=== PATIENT | female | born 1990 | race Caucasian/White ===

== ENCOUNTER → 2016-08-07 | Outpatient (CLI) | payer BC | LOC: MW.CHOBGYN 14:03 | PROVIDERS: ATTEND Obstetrics & Gynecology | DX: Z32.00 Encounter for pregnancy test, result unknown (principal) | CPT/HCPCS: 80305; 81003; 81025 ==

== ENCOUNTER → 2016-08-08 | Outpatient (CLI) | payer BC | END | disposition home or self-care (01) | LOC: MW.CHOBGYN 10:25 | PROVIDERS: ATTEND Obstetrics & Gynecology | DX: Z34.90 Encounter for supervision of normal pregnancy, unspecified, unspecified trimester (principal) | CPT/HCPCS: 87070; 87491; 87591 ==

== ENCOUNTER 2017-03-09 22:55 | Inpatient (IN) | payer BC ==
[2017-03-10] MEDS ORDERED: Ampicillin 2 GM in Sodium Chloride 0.9% 100 ML IV STA (01:00)
[2017-03-10] MEDS ORDERED: Carboprost Tromethamine 250 MCG/1 ML Amp IM PRN (01:07)
[2017-03-10] MEDS ORDERED: Lidocaine 1% 50 ML MDV INJECT PRN (01:07)
[2017-03-10] MEDS ORDERED: Butorphanol 1 MG/ML SDV IVPUSH PRN (01:07)
[2017-03-10] MEDS ORDERED: Water For Irrigation,Sterile 1,000 ML Container IRR PRN (01:07)
[2017-03-10] MEDS ORDERED: Sodium Chloride 0.9% 10 ML Syringe FLUSH PRN (01:07)
[2017-03-10] MEDS ORDERED: Sodium Chloride 0.9% 2.5 ML Syringe FLUSH PRN (01:07)
[2017-03-10] MEDS ORDERED: Methylergonovine 0.2 MG/1 ML Amp IM PRN ×2 (01:07→02:31)
[2017-03-10] MEDS ORDERED: Misoprostol 200 MCG Tab PO PRN (01:07)
[2017-03-10] MEDS ORDERED: Nalbuphine 10 MG/1 ML Vial IVPUSH PRN (01:07)
[2017-03-10] MEDS ORDERED: Sodium Chloride 0.9% 100 ML ONE (01:10)
[2017-03-10] MEDS ORDERED: Ampicillin 2 GM AdvVial IV ONE (01:10)
[2017-03-10] MEDS ORDERED: Oxytocin/0.9 % Sodium Chloride 30 UNIT/500 ML BAG IV SCH (01:15)
[2017-03-10] MEDS ORDERED: Lactated Ringers 1,000 ML IV SCH (01:15)
[2017-03-10] MEDS ORDERED: Diphtheria,Pertussis(Acell),Tetanus Vaccine 0.5 ML Syringe IM ONE (01:32)
--- NOTE | 2017-03-10 02:26 | PCM.LDHP ---
<Jt Kramer - Last Filed: 03/10/17 02:20> L&D History of Present Illness - General Date of Service: 03/10/17 Admit Problem/Dx: Patient Status Order with Admit Dx/Problem 03/09/17 23:32 Patient Status [ADT] Routine 03/10/17 01:07 Patient Status [ADT] Routine Admission Diagnosis/Problem Admission Diagnosis/Problem - planned Source of Information: Patient History Limitations: Reports: No Limitations - History of Present Illness Introduction:: Patient states that she began to feel contraction yesterday, 03/09/17, at 2am. She states shortly after that she passed her mucus plug that was "tinge red" in color. The presented to labor and delivery due to increased frequency and intensity of contraction. Timing/Duration: Reports: hour(s): (24hr), gradual onset Location, : Reports: Uterus Quality: Reports: Pressure Severity: Moderate Pain Score: 7 Associated Symptoms: Reports: vaginal discharge (clear / light pink) - Related Data Allergies/Adverse Reactions: Allergies Allergy/AdvReac Type Severity Reaction Status Date / Time No Known Allergies Allergy Verified 03/10/17 01:07 Past Medical History HEENT History: Reports: Impaired Vision Cardiovascular History: Reports: None Respiratory History: Reports: None Gastrointestinal History: Reports: None Genitourinary History: Reports: None. Denies: STD, UTI, Recurrent AUDIT LEAD History: Reports: : 2 Para: 1 LMP (Approximate): (May 27, 2016) Musculoskeletal History: Reports: None Neurological History: Reports: None Psychiatric History: Reports: None - Infectious Disease History Infectious Disease History: Denies: Hepatitis A, Hepatitis B, Hepatitis C, HIV- Human Immunodeficiency Virus - Past Surgical History Head Surgeries/Procedures: Reports: None HEENT Surgical History: Reports: None Cardiovascular Surgical History: Reports: None Respiratory Surgical History: Reports: None GI Surgical History: Reports: None Female Surgical History: Reports: None Endocrine Surgical History: Reports: None Neurological Surgical History: Reports: None Musculoskeletal Surgical History: Reports: None Oncologic Surgical History: Reports: None Dermatological Surgical History: Reports: None Social & Family History - Tobacco Use Smoking Status *Q: Never Smoker - Alcohol Use Alcohol Use History: No - Recreational Drug Use Recreational Drug Use: No - Sexual History Sexual History: Reports: Single Partner - Living Situation & Occupation Living situation: Reports: Occupation: Employed ([employer]) Social History Comment: Patient lives at home in [place] with her , works for [employer], and her daughter who is 6yo. No smoke exposure. H&P Review of Systems - Review of Systems: Review Of Systems: See Below General: Denies: Fever, Chills, Malaise HEENT: Reports: Glasses. Denies: Dysphasia, Headaches, Hearing Changes, Sore Throat, Visual Changes Pulmonary: Denies: Shortness of Breath, Pleuritic Chest Pain, Cough Cardiovascular: Reports: Edema (trace). Denies: Chest Pain, Palpitations, Dyspnea on Exertion Gastrointestinal: Reports: Nausea, Vomiting. Denies: Constipation, Diarrhea, Decreased Appetite Genitourinary: Denies: Dysuria, Frequency, Burning, Pain Musculoskeletal: Denies: Neck Pain, Joint Swelling, Muscle Pain Skin: Denies: Cyanosis Psychiatric: Denies: Confusion, Depression, Mood Lability Neurological: Denies: Confusion, Dizziness, Headache L&D Exam - Exam Exam: See Below - Vital Signs Vital Signs: Temp 98.1 BP 123/77 HR 68 RR 16 Weight: 74.843 kg - OB Specific Contraction Frequency (min): 2-5mins Contraction Intensity: Mild to Moderate Movement: Active Heart Tones: Present Heart Tones per Min: 130 Heart Rate (FHR) Variability: Moderate (6-25 bmp) Presentation: Left Occiput Anterior (EULA) - Exam General: Alert, Oriented HEENT: Mucosa Moist & [place] Neck: Trachea Midline Lungs: Clear to Auscultation, Normal Respiratory Effort Cardiovascular: Regular Rate, Regular Rhythm GI/Abdominal Exam: Normal Bowel Sounds Genitourinary: Normal external exam Back Exam: Full Range of Motion Extremities: Normal Inspection, Normal Range of Motion, Non-Tender, Pedal Edema (trace) Skin: Warm, Dry, Intact Neurological: Normal Speech. No: Focal Deficit Psychiatric: Alert, Normal Affect, Normal Mood - Patient Data Lab Results Last 24 hrs: Laboratory Results - last 24 hr 03/09/17 03/09/17 03/10/17 Range/Units 23:40 23:40 01:19 WBC 16.03 H (4.0-11.0) K/uL RBC 4.17 L (4.30-5.90) M/uL Hgb 11.5 L (12.0-16.0) g/dL Hct 35.1 L (36.0-46.0) % MCV 84.2 (80.0-98.0) fL MCH 27.6 (27.0-32.0) pg MCHC 32.8 (31.0-37.0) g/dL RDW Std Deviation 39.3 (28.0-62.0) fl RDW Coeff of Allie 13 (11.0-15.0) % Plt Count 276 (150-400) K/uL MPV 11.50 (7.40-12.00) fL Urine Color YELLOW Urine Appearance CLEAR Urine pH 7.0 (5.0-8.0) Ur Specific [place] 1.025 (1.001-1.035) Urine Protein NEGATIVE (NEGATIVE) mg/dL Urine Glucose (UA) NEGATIVE (NEGATIVE) mg/dL Urine Ketones NEGATIVE (NEGATIVE) mg/dL Urine Occult Blood TRACE-INTACT (NEGATIVE) Urine Nitrite NEGATIVE (NEGATIVE) Urine Bilirubin NEGATIVE (NEGATIVE) Urine Urobilinogen 0.2 (<2.0) EU/dL Ur Leukocyte Esterase NEGATIVE (NEGATIVE) Urine Opiates Screen NEGATIVE (NEGATIVE) Ur Oxycodone Screen NEGATIVE (NEGATIVE) Urine Methadone Screen NEGATIVE (NEGATIVE) Ur Barbiturates Screen NEGATIVE (NEGATIVE) Ur Phencyclidine Scrn NEGATIVE (NEGATIVE) Ur Amphetamine Screen NEGATIVE (NEGATIVE) U Methamphetamines Scrn NEGATIVE (NEGATIVE) U Benzodiazepines Scrn NEGATIVE (NEGATIVE) U Cocaine Metab Screen NEGATIVE (NEGATIVE) U Marijuana (THC) Screen NEGATIVE (NEGATIVE) Blood Type Antibody Screen 03/10/17 Range/Units 01:19 WBC (4.0-11.0) K/uL RBC (4.30-5.90) M/uL Hgb (12.0-16.0) g/dL Hct (36.0-46.0) % MCV (80.0-98.0) fL MCH (27.0-32.0) pg MCHC (31.0-37.0) g/dL RDW Std Deviation (28.0-62.0) fl RDW Coeff of Allie (11.0-15.0) % Plt Count (150-400) K/uL MPV (7.40-12.00) fL Urine Color Urine Appearance Urine pH (5.0-8.0) Ur Specific [place] (1.001-1.035) Urine Protein (NEGATIVE) mg/dL Urine Glucose (UA) (NEGATIVE) mg/dL Urine Ketones (NEGATIVE) mg/dL Urine Occult Blood (NEGATIVE) Urine Nitrite (NEGATIVE) Urine Bilirubin (NEGATIVE) Urine Urobilinogen (<2.0) EU/dL Ur Leukocyte Esterase (NEGATIVE) Urine Opiates Screen (NEGATIVE) Ur Oxycodone Screen (NEGATIVE) Urine Methadone Screen (NEGATIVE) Ur Barbiturates Screen (NEGATIVE) Ur Phencyclidine Scrn (NEGATIVE) Ur Amphetamine Screen (NEGATIVE) U Methamphetamines Scrn (NEGATIVE) U Benzodiazepines Scrn (NEGATIVE) U Cocaine Metab Screen (NEGATIVE) U Marijuana (THC) Screen (NEGATIVE) Blood Type B POSITIVE Antibody Screen NEGATIVE Result Diagrams: 03/10/17 01:19 - Problem List (1) SNOMED Code(s): 06945185 ICD Code: Z34.90 - ENCNTR FOR SUPRVSN OF NORMAL , UNSP, UNSP TRIMESTER Status: Acute Current Visit: Yes QualifierTitle: Weeks of gestation: 41 weeks Qualified Code(s): Z3A.41 - 41 weeks gestation of (2) care insufficient SNOMED Code(s): 0796289281800 ICD Code: O09.30 - SUPRVSN OF PREG W INSUFFICIENT ANTENAT CARE, UNSP TRIMESTER Status: Acute Current Visit: Yes QualifierTitle: Trimester: unspecified trimester Qualified Code(s): O09.30 - Supervision of with insufficient care, unspecified trimester Problem List Initiated/Reviewed/Updated: Yes Orders Last 24hrs: Active Orders 24 hr Category Date Time Status Patient Status [ADT] Routine ADT 03/09/17 23:32 Active Patient Status [ADT] Routine ADT 03/10/17 01:07 Active Heart Tones [RC] CONTINUOUS Care 03/10/17 01:07 Active Non Stress Test [RC] PER UNIT ROUTINE Care 03/09/17 23:32 Active Non Stress Test [RC] PER UNIT ROUTINE Care 03/10/17 01:07 Active May Shower [RC] ASDIRECTED Care 03/10/17 01:07 Active Notify Provider [RC] PRN Care 03/10/17 01:07 Active Up ad Martha [RC] ASDIRECTED Care 03/09/17 23:32 Active Up ad Martha [RC] ASDIRECTED Care 03/10/17 01:07 Active Vaccines to be Administered [RC] PER UNIT ROUTINE Care 03/10/17 01:32 Active Vaginal Exam [RC] Click to Edit Care 03/09/17 23:32 Active Vaginal Exam [RC] PRN Care 03/10/17 01:07 Active Vital Signs [RC] PER UNIT ROUTINE Care 03/09/17 23:32 Active Vital Signs [RC] PER UNIT ROUTINE Care 03/10/17 01:07 Active CULTURE GROUP B STREP [RM] Routine Lab 03/10/17 01:45 Received Ampicillin 1 gm Med 03/10/17 05:00 Active Sodium Chloride 0.9% [Normal Saline] 50 ml IV Q4H Butorphanol [Stadol] Med 03/10/17 01:07 Active 1 mg IVPUSH Q1H PRN Carboprost Tromethamine [Hemabate DS] Med 03/10/17 01:07 Active 250 mcg IM ASDIRECTED PRN Lactated Ringers [Ringers, Lactated] 1,000 ml Med 03/10/17 01:15 Active IV ASDIRECTED Lidocaine 1% [Xylocaine 1%] Med 03/10/17 01:07 Active 50 ml INJECT .ONCE PRN Methylergonovine [Methergine] Med 03/10/17 01:07 Active 0.2 mg IM ASDIRECTED PRN Misoprostol [Cytotec] Med 03/10/17 01:07 Active 200 mcg PO .ONCE PRN Nalbuphine [Nubain] Med 03/10/17 01:07 Active 10 mg IVPUSH Q1H PRN Oxytocin/0.9 % Sodium Chloride [Oxytocin 30 Unit/500 ML Med 03/10/17 01:15 Active -NS] 30 unit in 500 ml IV TITRATE Sodium Chloride 0.9% [Saline Flush] Med 03/10/17 01:07 Active 10 ml FLUSH ASDIRECTED PRN Sodium Chloride 0.9% [Saline Flush] Med 03/10/17 01:07 Active 2.5 ml FLUSH ASDIRECTED PRN Water For Irrigation,Sterile [Sterile Water for Med 03/10/17 01:07 Active Irrigation] 1,000 ml IRR ASDIRECTED PRN Scalp Electrode [WOMSER] Per Unit Routine Oth 03/10/17 01:07 Ordered Peripheral IV Insertion Adult [OM.PC] Routine Oth 03/10/17 01:07 Ordered Resuscitation Status Routine Resus Stat 03/09/17 23:32 Ordered Medication Orders Butorphanol Tartrate (Stadol) 1 mg IVPUSH Q1H PRN PRN Reason: Pain Carboprost Tromethamine (Hemabate Ds) 250 mcg IM ASDIRECTED PRN PRN Reason: Post Hemorrhage Lactated Ringer's (Ringers, Lactated) 1,000 mls @ 150 mls/hr IV ASDIRECTED [facility] Last Admin: 03/10/17 01:04 Dose: 999 mls/hr Oxytocin/Sodium Chloride (Oxytocin 30 Unit/500 Ml-Ns) 30 unit in 500 mls @ 999 mls/hr IV TITRATE [facility] Ampicillin Sodium 1 gm/ Sodium (Chloride) 50 mls @ 100 mls/hr IV Q4H [facility] Lidocaine HCl (Xylocaine 1%) 50 ml INJECT .ONCE PRN PRN Reason: Laceration repair Methylergonovine Maleate (Methergine) 0.2 mg IM ASDIRECTED PRN PRN Reason: Post Hemorrhage Misoprostol (Cytotec) 200 mcg PO .ONCE PRN PRN Reason: Post Hemorrhage Nalbuphine HCl (Nubain) 10 mg IVPUSH Q1H PRN PRN Reason: Pain (severe 7-10) Sodium Chloride (Saline Flush) 10 ml FLUSH ASDIRECTED PRN PRN Reason: Keep Vein Open Sodium Chloride (Saline Flush) 2.5 ml FLUSH ASDIRECTED PRN PRN Reason: Keep Vein Open Sterile Water (Sterile Water For Irrigation) 1,000 ml IRR ASDIRECTED PRN PRN Reason: delivery Assessment/Plan Comment:: Assessment: 26yo F at 41wk2d in active labor with GBS unknown, Rubella immune, and B + heart rate in 130s Contractions every 2-5mins :No known complication with minimal care; 2 visits Patient plans to breastfeed Plan: Admit to L and D Anticipate <Katherine Masterson - Last Filed: 03/10/17 05:29> L&D History of Present Illness - General Admit Problem/Dx: Patient Status Order with Admit Dx/Problem 03/10/17 02:31 Patient Status [ADT] Routine Admission Diagnosis/Problem Admission Diagnosis/Problem - planned - History of Present Illness Introduction:: 26 year old present at 40 6/7 weeks gestation based on LMP of 05-28-16, non compliant with care, had 2 visits, with Laila Alvarez, last visit was in October. She has had no care since that time, presents in latent phase of labor. - Patient Data Lab Results Last 24 hrs: Laboratory Results - last 24 hr 03/09/17 03/09/17 03/10/17 Range/Units 23:40 23:40 01:19 WBC 16.03 H (4.0-11.0) K/uL RBC 4.17 L (4.30-5.90) M/uL Hgb 11.5 L (12.0-16.0) g/dL Hct 35.1 L (36.0-46.0) % MCV 84.2 (80.0-98.0) fL MCH 27.6 (27.0-32.0) pg MCHC 32.8 (31.0-37.0) g/dL RDW Std Deviation 39.3 (28.0-62.0) fl RDW Coeff of Allie 13 (11.0-15.0) % Plt Count 276 (150-400) K/uL MPV 11.50 (7.40-12.00) fL Urine Color YELLOW Urine Appearance CLEAR Urine pH 7.0 (5.0-8.0) Ur Specific [place] 1.025 (1.001-1.035) Urine Protein NEGATIVE (NEGATIVE) mg/dL Urine Glucose (UA) NEGATIVE (NEGATIVE) mg/dL Urine Ketones NEGATIVE (NEGATIVE) mg/dL Urine Occult Blood TRACE-INTACT (NEGATIVE) Urine Nitrite NEGATIVE (NEGATIVE) Urine Bilirubin NEGATIVE (NEGATIVE) Urine Urobilinogen 0.2 (<2.0) EU/dL Ur Leukocyte Esterase NEGATIVE (NEGATIVE) Urine Opiates Screen NEGATIVE (NEGATIVE) Ur Oxycodone Screen NEGATIVE (NEGATIVE) Urine Methadone Screen NEGATIVE (NEGATIVE) Ur Barbiturates Screen NEGATIVE (NEGATIVE) Ur Phencyclidine Scrn NEGATIVE (NEGATIVE) Ur Amphetamine Screen NEGATIVE (NEGATIVE) U Methamphetamines Scrn NEGATIVE (NEGATIVE) U Benzodiazepines Scrn NEGATIVE (NEGATIVE) U Cocaine Metab Screen NEGATIVE (NEGATIVE) U Marijuana (THC) Screen NEGATIVE (NEGATIVE) Blood Type Antibody Screen 03/10/17 Range/Units 01:19 WBC (4.0-11.0) K/uL RBC (4.30-5.90) M/uL Hgb (12.0-16.0) g/dL Hct (36.0-46.0) % MCV (80.0-98.0) fL MCH (27.0-32.0) pg MCHC (31.0-37.0) g/dL RDW Std Deviation (28.0-62.0) fl RDW Coeff of Allie (11.0-15.0) % Plt Count (150-400) K/uL MPV (7.40-12.00) fL Urine Color Urine Appearance Urine pH (5.0-8.0) Ur Specific [place] (1.001-1.035) Urine Protein (NEGATIVE) mg/dL Urine Glucose (UA) (NEGATIVE) mg/dL Urine Ketones (NEGATIVE) mg/dL Urine Occult Blood (NEGATIVE) Urine Nitrite (NEGATIVE) Urine Bilirubin (NEGATIVE) Urine Urobilinogen (<2.0) EU/dL Ur Leukocyte Esterase (NEGATIVE) Urine Opiates Screen (NEGATIVE) Ur Oxycodone Screen (NEGATIVE) Urine Methadone Screen (NEGATIVE) Ur Barbiturates Screen (NEGATIVE) Ur Phencyclidine Scrn (NEGATIVE) Ur Amphetamine Screen (NEGATIVE) U Methamphetamines Scrn (NEGATIVE) U Benzodiazepines Scrn (NEGATIVE) U Cocaine Metab Screen (NEGATIVE) U Marijuana (THC) Screen (NEGATIVE) Blood Type B POSITIVE Antibody Screen NEGATIVE Result Diagrams: 03/10/17 01:19 Orders Last 24hrs: Active Orders 24 hr Category Date Time Status Patient Status [ADT] Routine ADT 03/10/17 02:31 Active Heart Tones [RC] CONTINUOUS Care 03/10/17 01:07 Inactive Non Stress Test [RC] PER UNIT ROUTINE Care 03/09/17 23:32 Inactive Non Stress Test [RC] PER UNIT ROUTINE Care 03/10/17 01:07 Inactive May Shower [RC] ASDIRECTED Care 03/10/17 01:07 Inactive May Shower [RC] ASDIRECTED Care 03/10/17 02:31 Active Notify Provider [RC] PRN Care 03/10/17 01:07 Inactive Up ad Martha [RC] ASDIRECTED Care 03/09/17 23:32 Inactive Up ad Martha [RC] ASDIRECTED Care 03/10/17 01:07 Inactive Up ad Martha [RC] ASDIRECTED Care 03/10/17 02:31 Active Vaccines to be Administered [RC] PER UNIT ROUTINE Care 03/10/17 01:32 Inactive Vaginal Exam [RC] Click to Edit Care 03/09/17 23:32 Inactive Vaginal Exam [RC] PRN Care 03/10/17 01:07 Inactive Vital Signs [RC] PER UNIT ROUTINE Care 03/09/17 23:32 Inactive Vital Signs [RC] PER UNIT ROUTINE Care 03/10/17 01:07 Inactive Vital Signs [RC] PER UNIT ROUTINE Care 03/10/17 02:31 Active Regular Diet [DIET] Diet 03/10/17 Breakfast Active CULTURE GROUP B STREP [RM] Routine Lab 03/10/17 01:45 Stop Req HEMOGLOBIN/HEMATOCRIT,HH [HEME] Timed Lab 03/11/17 05:11 Ordered Acetaminophen [Tylenol Extra Strength] Med 03/10/17 02:31 Active 1,000 mg PO Q4H PRN Benzocaine/Menthol [Dermoplast Pain Relief 20%-0.5% Med 03/10/17 02:31 Active [place]] 78 gm TOP ASDIRECTED PRN Bisacodyl [Dulcolax] Med 03/10/17 02:31 Active 10 mg RECTAL .ONCE PRN Docusate Sodium [Colace] Med 03/10/17 02:31 Active 100 mg PO BID PRN Ibuprofen [Motrin] Med 03/10/17 02:31 Active 800 mg PO Q6H PRN Lanolin [Lansinoh HPA] Med 03/10/17 02:31 Active See Dose Instructions TOP ASDIRECTED PRN Methylergonovine [Methergine] Med 03/10/17 02:31 Active 0.2 mg IM .ONCE PRN Witch Pily [Tucks] Med 03/10/17 02:31 Active 1 pad TOP ASDIRECTED PRN oxyCODONE Med 03/10/17 02:31 Active 5 mg PO Q2H PRN Assess Lochia [WOMSER] Per Unit Routine Oth 03/10/17 02:31 Ordered Assess Uterine Involution [WOMSER] Per Unit Routine Oth 03/10/17 02:31 Ordered Perineal Care [OM.PC] Per Unit Routine Oth 03/10/17 02:32 Ordered Peripheral IV Discontinue [OM.PC] Routine Oth 03/10/17 02:31 Ordered Resuscitation Status Routine Resus Stat 03/10/17 02:31 Ordered Medication Orders Acetaminophen (Tylenol Extra Strength) 1,000 mg PO Q4H PRN PRN Reason: Pain Benzocaine/Menthol (Dermoplast Pain Relief 20%-0.5% [place]) 78 gm TOP ASDIRECTED PRN PRN Reason: Perineal Comfort Measure Last Admin: 03/10/17 02:47 Dose: 1 canister Bisacodyl (Dulcolax) 10 mg RECTAL .ONCE PRN PRN Reason: Constipation Docusate Sodium (Colace) 100 mg PO BID PRN PRN Reason: Constipation Last Admin: 03/10/17 02:48 Dose: 100 mg Emollient Ointment (Lansinoh Hpa) 0 gm TOP ASDIRECTED PRN PRN Reason: Sore Nipples Last Admin: 03/10/17 02:47 Dose: 1 applic Ibuprofen (Motrin) 800 mg PO Q6H PRN PRN Reason: Pain Last Admin: 03/10/17 02:47 Dose: 800 mg Methylergonovine Maleate (Methergine) 0.2 mg IM .ONCE PRN PRN Reason: Excessive Vaginal Bleeding Oxycodone HCl (Oxycodone) 5 mg PO Q2H PRN PRN Reason: Pain Witch Pily (Tucks) 1 pad TOP ASDIRECTED PRN PRN Reason: comfort care Assessment/Plan Comment:: Patient was seen and examined by me and I agree with above. Ampicillin initiated for GBS prophylaxis, GBS culture obtained, will update immunizations.
[2017-03-10] MEDS ORDERED: Lanolin 100% Cream 7 GM Tube TOP PRN (02:31)
[2017-03-10] MEDS ORDERED: Benzocaine/Menthol 20%-0.5% Spray 78 GM Cannister TOP PRN (02:31)
[2017-03-10] MEDS ORDERED: Witch Hazel Medicated Pads 40/Jar TOP PRN (02:31)
[2017-03-10] MEDS ORDERED: Acetaminophen 500 MG Tab PO PRN (02:31)
[2017-03-10] MEDS ORDERED: Bisacodyl 10 MG Supp RECTAL PRN (02:31)
[2017-03-10] MEDS ORDERED: Docusate Sodium 100 MG Cap PO PRN (02:31)
[2017-03-10] MEDS ORDERED: oxyCODONE 5 MG Tab PO PRN (02:31)
[2017-03-10] MEDS: Ibuprofen 800 MG Tab PO PRN ×2 (02:47→08:31)
[2017-03-10] MEDS ORDERED: Ampicillin 1 GM in Sodium Chloride 0.9% 50 ML IV SCH (05:00)
--- NOTE | 2017-03-10 11:28 | PCM.PNPP ---
- General Info Functional Status: Reports: Pain Controlled, Tolerating Diet, Ambulating - Review of Systems General: Reports: No Symptoms HEENT: Reports: No Symptoms Pulmonary: Reports: No Symptoms Cardiovascular: Reports: No Symptoms Gastrointestinal: Reports: No Symptoms Genitourinary: Reports: No Symptoms Musculoskeletal: Reports: No Symptoms Skin: Reports: No Symptoms Neurological: Reports: No Symptoms Psychiatric: Reports: No Symptoms - Patient Data Vital Signs - Most Recent: Last Vital Signs Temp 36.6 C 03/10/17 08:53 Pulse 66 03/10/17 08:53 Resp 16 03/10/17 08:53 BP 125/67 03/10/17 08:53 Pulse Ox 98 03/10/17 08:53 Weight - Most Recent: 74.843 kg Lab Results - Last 24 Hours: Laboratory Results - last 24 hr 03/09/17 03/09/17 03/10/17 Range/Units 23:40 23:40 01:19 WBC 16.03 H (4.0-11.0) K/uL RBC 4.17 L (4.30-5.90) M/uL Hgb 11.5 L (12.0-16.0) g/dL Hct 35.1 L (36.0-46.0) % MCV 84.2 (80.0-98.0) fL MCH 27.6 (27.0-32.0) pg MCHC 32.8 (31.0-37.0) g/dL RDW Std Deviation 39.3 (28.0-62.0) fl RDW Coeff of Allie 13 (11.0-15.0) % Plt Count 276 (150-400) K/uL MPV 11.50 (7.40-12.00) fL Urine Color YELLOW Urine Appearance CLEAR Urine pH 7.0 (5.0-8.0) Ur Specific [place] 1.025 (1.001-1.035) Urine Protein NEGATIVE (NEGATIVE) mg/dL Urine Glucose (UA) NEGATIVE (NEGATIVE) mg/dL Urine Ketones NEGATIVE (NEGATIVE) mg/dL Urine Occult Blood TRACE-INTACT (NEGATIVE) Urine Nitrite NEGATIVE (NEGATIVE) Urine Bilirubin NEGATIVE (NEGATIVE) Urine Urobilinogen 0.2 (<2.0) EU/dL Ur Leukocyte Esterase NEGATIVE (NEGATIVE) Urine Opiates Screen NEGATIVE (NEGATIVE) Ur Oxycodone Screen NEGATIVE (NEGATIVE) Urine Methadone Screen NEGATIVE (NEGATIVE) Ur Barbiturates Screen NEGATIVE (NEGATIVE) Ur Phencyclidine Scrn NEGATIVE (NEGATIVE) Ur Amphetamine Screen NEGATIVE (NEGATIVE) U Methamphetamines Scrn NEGATIVE (NEGATIVE) U Benzodiazepines Scrn NEGATIVE (NEGATIVE) U Cocaine Metab Screen NEGATIVE (NEGATIVE) U Marijuana (THC) Screen NEGATIVE (NEGATIVE) Blood Type Antibody Screen 03/10/17 Range/Units 01:19 WBC (4.0-11.0) K/uL RBC (4.30-5.90) M/uL Hgb (12.0-16.0) g/dL Hct (36.0-46.0) % MCV (80.0-98.0) fL MCH (27.0-32.0) pg MCHC (31.0-37.0) g/dL RDW Std Deviation (28.0-62.0) fl RDW Coeff of Allie (11.0-15.0) % Plt Count (150-400) K/uL MPV (7.40-12.00) fL Urine Color Urine Appearance Urine pH (5.0-8.0) Ur Specific [place] (1.001-1.035) Urine Protein (NEGATIVE) mg/dL Urine Glucose (UA) (NEGATIVE) mg/dL Urine Ketones (NEGATIVE) mg/dL Urine Occult Blood (NEGATIVE) Urine Nitrite (NEGATIVE) Urine Bilirubin (NEGATIVE) Urine Urobilinogen (<2.0) EU/dL Ur Leukocyte Esterase (NEGATIVE) Urine Opiates Screen (NEGATIVE) Ur Oxycodone Screen (NEGATIVE) Urine Methadone Screen (NEGATIVE) Ur Barbiturates Screen (NEGATIVE) Ur Phencyclidine Scrn (NEGATIVE) Ur Amphetamine Screen (NEGATIVE) U Methamphetamines Scrn (NEGATIVE) U Benzodiazepines Scrn (NEGATIVE) U Cocaine Metab Screen (NEGATIVE) U Marijuana (THC) Screen (NEGATIVE) Blood Type B POSITIVE Antibody Screen NEGATIVE Med Orders - Current: Current Medications Acetaminophen (Tylenol Extra Strength) 1,000 mg PO Q4H PRN PRN Reason: Pain Benzocaine/Menthol (Dermoplast Pain Relief 20%-0.5% [place]) 78 gm TOP ASDIRECTED PRN PRN Reason: Perineal Comfort Measure Last Admin: 03/10/17 02:47 Dose: 1 canister Bisacodyl (Dulcolax) 10 mg RECTAL .ONCE PRN PRN Reason: Constipation Docusate Sodium (Colace) 100 mg PO BID PRN PRN Reason: Constipation Last Admin: 03/10/17 02:48 Dose: 100 mg Emollient Ointment (Lansinoh Hpa) 0 gm TOP ASDIRECTED PRN PRN Reason: Sore Nipples Last Admin: 03/10/17 02:47 Dose: 1 applic Ibuprofen (Motrin) 800 mg PO Q6H PRN PRN Reason: Pain Last Admin: 03/10/17 08:31 Dose: 800 mg Methylergonovine Maleate (Methergine) 0.2 mg IM .ONCE PRN PRN Reason: Excessive Vaginal Bleeding Oxycodone HCl (Oxycodone) 5 mg PO Q2H PRN PRN Reason: Pain Witch Pily (Tucks) 1 pad TOP ASDIRECTED PRN PRN Reason: comfort care Discontinued Medications Ampicillin Sodium (Ampicillin) Confirm Administered Dose 2 gm IV .STK-MED ONE Stop: 03/10/17 01:11 Butorphanol Tartrate (Stadol) 1 mg IVPUSH Q1H PRN PRN Reason: Pain Carboprost Tromethamine (Hemabate Ds) 250 mcg IM ASDIRECTED PRN PRN Reason: Post Hemorrhage Diphtheria/Tetanus/Acell Pertussis (Adacel) 0.5 ml IM .ONCE ONE Stop: 03/10/17 01:33 Ampicillin Sodium 2 gm/ Sodium (Chloride) 100 mls @ 200 mls/hr IV ONETIME STA Stop: 03/10/17 01:29 Last Admin: 03/10/17 01:04 Dose: 200 mls/hr Lactated Ringer's (Ringers, Lactated) 1,000 mls @ 150 mls/hr IV ASDIRECTED [facility] Last Admin: 03/10/17 01:04 Dose: 999 mls/hr Oxytocin/Sodium Chloride (Oxytocin 30 Unit/500 Ml-Ns) 30 unit in 500 mls @ 999 mls/hr IV TITRATE [facility] Last Admin: 03/10/17 02:04 Dose: 999 mls/hr Ampicillin Sodium 1 gm/ Sodium (Chloride) 50 mls @ 100 mls/hr IV Q4H [facility] Sodium Chloride (Normal Saline) Confirm Administered Dose 100 mls @ as directed .ROUTE .STK-MED ONE Stop: 03/10/17 01:11 Lidocaine HCl (Xylocaine 1%) 50 ml INJECT .ONCE PRN PRN Reason: Laceration repair Methylergonovine Maleate (Methergine) 0.2 mg IM ASDIRECTED PRN PRN Reason: Post Hemorrhage Misoprostol (Cytotec) 200 mcg PO .ONCE PRN PRN Reason: Post Hemorrhage Nalbuphine HCl (Nubain) 10 mg IVPUSH Q1H PRN PRN Reason: Pain (severe 7-10) Sodium Chloride (Saline Flush) 10 ml FLUSH ASDIRECTED PRN PRN Reason: Keep Vein Open Sodium Chloride (Saline Flush) 2.5 ml FLUSH ASDIRECTED PRN PRN Reason: Keep Vein Open Sterile Water (Sterile Water For Irrigation) 1,000 ml IRR ASDIRECTED PRN PRN Reason: delivery - Infant Interaction Disposition, : [place] in Room with Family Interaction: Holding Infant Infant Feeding: Breastfed Infant; Nursed Well Support Person: - Recovery Exam Fundal Tone: Firm Fundal Level: 1 Fingerbreadths Below Umbilicus Fundal Placement: Midline Lochia Amount: Scant Lochia Color: Rubra/Red Perineum Description: Intact, Minimal Bruising/Swelling Episiotomy/Laceration: None Bladder Status: Nonpalpable, Voiding - Exam General: Alert, Oriented Lungs: Normal Respiratory Effort GI/Abdominal Exam: Soft, Non-Tender, No Distention Extremities: Normal Inspection, Normal Range of Motion, Non-Tender, No Pedal Edema, Normal Capillary Refill Skin: Warm, Dry, Intact Neurological: No New Focal Deficit Psy/Mental Status: Alert, Normal Affect, Normal Mood - Problem List & Annotations (1) Vaginal delivery SNOMED Code(s): 410789373 Code(s): O80 - ENCOUNTER FOR FULL-TERM UNCOMPLICATED DELIVERY Status: Acute Current Visit: Yes - Problem List Review Problem List Initiated/Reviewed/Updated: Yes - My Orders Last 24 Hours: My Active Orders 03/09/17 23:32 Non Stress Test [RC] PER UNIT ROUTINE Up ad Martha [RC] ASDIRECTED Vaginal Exam [RC] Click to Edit Vital Signs [RC] PER UNIT ROUTINE 03/10/17 01:07 Heart Tones [RC] CONTINUOUS Non Stress Test [RC] PER UNIT ROUTINE May Shower [RC] ASDIRECTED Notify Provider [RC] PRN Up ad Martha [RC] ASDIRECTED Vaginal Exam [RC] PRN Vital Signs [RC] PER UNIT ROUTINE 03/10/17 01:32 Vaccines to be Administered [RC] PER UNIT ROUTINE 03/10/17 01:45 CULTURE GROUP B STREP [RM] Routine 03/10/17 02:31 Patient Status [ADT] Routine May Shower [RC] ASDIRECTED Up ad Martha [RC] ASDIRECTED Vital Signs [RC] PER UNIT ROUTINE Acetaminophen [Tylenol Extra Strength] 1,000 mg PO Q4H PRN Benzocaine/Menthol [Dermoplast Pain Relief 20%-0.5% [place]] 78 gm TOP ASDIRECTED PRN Bisacodyl [Dulcolax] 10 mg RECTAL .ONCE PRN Docusate Sodium [Colace] 100 mg PO BID PRN Ibuprofen [Motrin] 800 mg PO Q6H PRN Lanolin [Lansinoh HPA] See Dose Instructions TOP ASDIRECTED PRN Methylergonovine [Methergine] 0.2 mg IM .ONCE PRN Witch Pily [Tucks] 1 pad TOP ASDIRECTED PRN oxyCODONE 5 mg PO Q2H PRN Assess Lochia [WOMSER] Per Unit Routine Assess Uterine Involution [WOMSER] Per Unit Routine Peripheral IV Discontinue [OM.PC] Routine Resuscitation Status Routine 03/10/17 02:32 Perineal Care [OM.PC] Per Unit Routine 03/10/17 Breakfast Regular Diet [DIET] 03/11/17 05:11 HEMOGLOBIN/HEMATOCRIT,HH [HEME] Timed - Assessment Assessment:: PPD0 after , stable, minimal lochia, denies significant pain except cramping after - Plan Plan:: Continue care, needs tdap and flu shot prior to discharge. Anticipate discharge tomorrow.
[2017-03-11] MEDS ORDERED: Diphtheria,Pertussis(Acell),Tetanus Vaccine 0.5 ML Syringe IM ONE (06:43)
--- NOTE | 2017-03-11 08:01 | PCM.PNPP ---
- General Info Date of Service: 03/11/17 Functional Status: Reports: Pain Controlled, Tolerating Diet, Ambulating, Urinating - Review of Systems General: Denies: Fever, Weakness, Fatigue HEENT: Denies: Headaches, Visual Changes Pulmonary: Denies: Shortness of Breath, Pleuritic Chest Pain, Cough Cardiovascular: Denies: Chest Pain, Palpitations Gastrointestinal: Reports: Flatus. Denies: Diarrhea, Nausea, Vomiting Genitourinary: Denies: Dysuria, Frequency, Burning Musculoskeletal: Denies: Neck Pain Neurological: Denies: Confusion, Dizziness, Headache Psychiatric: Denies: Confusion, Depression, Anxiety - General Info Date of Service: 03/11/17 - Patient Data Vital Signs - Most Recent: Last Vital Signs Temp 98.6 F 03/11/17 05:35 Pulse 70 03/11/17 05:35 Resp 18 03/11/17 05:35 BP 120/62 03/11/17 05:35 Pulse Ox 98 03/11/17 05:35 Weight - Most Recent: 165 lb Lab Results - Last 24 Hours: Laboratory Results - last 24 hr 03/11/17 Range/Units 05:40 Hgb 10.5 L (12.0-16.0) g/dL Hct 32.3 L (36.0-46.0) % Med Orders - Current: Current Medications Acetaminophen (Tylenol Extra Strength) 1,000 mg PO Q4H PRN PRN Reason: Pain Benzocaine/Menthol (Dermoplast Pain Relief 20%-0.5% [place]) 78 gm TOP ASDIRECTED PRN PRN Reason: Perineal Comfort Measure Last Admin: 03/10/17 02:47 Dose: 1 canister Bisacodyl (Dulcolax) 10 mg RECTAL .ONCE PRN PRN Reason: Constipation Docusate Sodium (Colace) 100 mg PO BID PRN PRN Reason: Constipation Last Admin: 03/10/17 02:48 Dose: 100 mg Emollient Ointment (Lansinoh Hpa) 0 gm TOP ASDIRECTED PRN PRN Reason: Sore Nipples Last Admin: 03/10/17 02:47 Dose: 1 applic Ibuprofen (Motrin) 800 mg PO Q6H PRN PRN Reason: Pain Last Admin: 03/10/17 08:31 Dose: 800 mg Methylergonovine Maleate (Methergine) 0.2 mg IM .ONCE PRN PRN Reason: Excessive Vaginal Bleeding Oxycodone HCl (Oxycodone) 5 mg PO Q2H PRN PRN Reason: Pain Witch Pily (Tucks) 1 pad TOP ASDIRECTED PRN PRN Reason: comfort care Discontinued Medications Ampicillin Sodium (Ampicillin) Confirm Administered Dose 2 gm IV .STK-[facility] ONE Stop: 03/10/17 01:11 Butorphanol Tartrate (Stadol) 1 mg IVPUSH Q1H PRN PRN Reason: Pain Carboprost Tromethamine (Hemabate Ds) 250 mcg IM ASDIRECTED PRN PRN Reason: Post Hemorrhage Diphtheria/Tetanus/Acell Pertussis (Adacel) 0.5 ml IM .ONCE ONE Stop: 03/10/17 01:33 Diphtheria/Tetanus/Acell Pertussis (Adacel) 0.5 ml IM .ONCE ONE Stop: 03/11/17 06:44 Ampicillin Sodium 2 gm/ Sodium (Chloride) 100 mls @ 200 mls/hr IV ONETIME STA Stop: 03/10/17 01:29 Last Admin: 03/10/17 01:04 Dose: 200 mls/hr Lactated Ringer's (Ringers, Lactated) 1,000 mls @ 150 mls/hr IV [facility]ED [facility] Last Admin: 03/10/17 01:04 Dose: 999 mls/hr Oxytocin/Sodium Chloride (Oxytocin 30 Unit/500 Ml-Ns) 30 unit in 500 mls @ 999 mls/hr IV TITRATE [facility] Last Admin: 03/10/17 02:04 Dose: 999 mls/hr Ampicillin Sodium 1 gm/ Sodium (Chloride) 50 mls @ 100 mls/hr IV Q4H [facility] Sodium Chloride (Normal Saline) Confirm Administered Dose 100 mls @ as directed .ROUTE .STK-MED ONE Stop: 03/10/17 01:11 Lidocaine HCl (Xylocaine 1%) 50 ml INJECT .ONCE PRN PRN Reason: Laceration repair Methylergonovine Maleate (Methergine) 0.2 mg IM ASDIRECTED PRN PRN Reason: Post Hemorrhage Misoprostol (Cytotec) 200 mcg PO .ONCE PRN PRN Reason: Post Hemorrhage Nalbuphine HCl (Nubain) 10 mg IVPUSH Q1H PRN PRN Reason: Pain (severe 7-10) Sodium Chloride (Saline Flush) 10 ml FLUSH ASDIRECTED PRN PRN Reason: Keep Vein Open Sodium Chloride (Saline Flush) 2.5 ml FLUSH ASDIRECTED PRN PRN Reason: Keep Vein Open Sterile Water (Sterile Water For Irrigation) 1,000 ml IRR ASDIRECTED PRN PRN Reason: delivery - Interaction Disposition, : in Room with Family Interaction: Holding Feeding: Breastfed Infant; Nursed Well Support Person: - Recovery Exam Fundal Tone: Firm Fundal Level: 1 Fingerbreadths Below Umbilicus Fundal Placement: Midline Lochia Amount: Scant Lochia Color: Rubra/Red Perineum Description: Intact, Minimal Bruising/Swelling Episiotomy/Laceration: None Bladder Status: Voiding - Exam General: Alert, Oriented HEENT: Pupils Reactive, Mucous Membr. Moist/[place] Lungs: Clear to Auscultation, Normal Respiratory Effort Cardiovascular: Regular Rate, Regular Rhythm GI/Abdominal Exam: Normal Bowel Sounds, Soft Extremities: Normal Inspection, Normal Range of Motion, Non-Tender, No Pedal Edema Skin: Warm, Dry, Intact Neurological: No New Focal Deficit Psy/Mental Status: Alert, Normal Affect, Normal Mood - Problem List & Annotations (1) SNOMED Code(s): 78861087 Code(s): Z34.90 - ENCNTR FOR SUPRVSN OF NORMAL , UNSP, UNSP TRIMESTER Status: Acute Current Visit: Yes Qualifiers: Weeks of gestation: 41 weeks Qualified Code(s): Z3A.41 - 41 weeks gestation of (2) care insufficient SNOMED Code(s): 7893829584334 Code(s): O09.30 - SUPRVSN OF PREG W INSUFFICIENT ANTENAT CARE, UNSP TRIMESTER Status: Acute Current Visit: Yes Qualifiers: Trimester: unspecified trimester Qualified Code(s): O09.30 - Supervision of with insufficient care, unspecified trimester - Problem List Review Problem List Initiated/Reviewed/Updated: Yes - Assessment Assessment:: PPD1 - at 41wk. Minimal lochia and pain. Did note cramping after . - Plan Plan:: Patient would like to be discharged however baby is being evaluated for heart issues this morning. If baby's evaluation is ok then plan to discharge. Discharge instruction reviewed. Continue to take PNV if . Call us/ ED if fever over 101 or bloody discharge that soaks a large pad in less than an hour. Educated on normal emotional changes but told her to call us if they get worse after 2 weeks or have thoughts of hurting herself or others. Can use OTC ibuprofen/Tylenol as needed for pain. Nothing in the vaginal in 6 weeks and educated that they can become even when and not having a period. F/U with [facility] in 6 weeks.
--- NOTE | 2017-03-11 08:49 | PCM.DCSUM1 ---
<Jt Kramer - Last Filed: 03/11/17 08:43> Discharge Summary - Hospital Course Free Text/Narrative:: 26yo F at 41wk0d states that she began to feel contractions day prior to admission. The patient presented to L&D after increased frequency and intensity of contractions. Patient delivered after early on 03/10/17. Patient was transitioned to cares without issue. Patient pain is well controlled , patient is tolerating a normal diet and able to ambulated without issue. Patient lochia is minimal. - Discharge Data Discharge Date: 03/11/17 Discharge Disposition: Home, Self-Care 01 Condition: Good - Discharge Diagnosis/Problem(s) (1) SNOMED Code(s): 91113526 ICD Code: Z34.90 - ENCNTR FOR SUPRVSN OF NORMAL , UNSP, UNSP TRIMESTER Status: Acute Current Visit: Yes QualifierTitle: Weeks of gestation: 41 weeks Qualified Code(s): Z3A.41 - 41 weeks gestation of (2) care insufficient SNOMED Code(s): 3515525488245 ICD Code: O09.30 - SUPRVSN OF PREG W INSUFFICIENT ANTENAT CARE, UNSP TRIMESTER Status: Acute Current Visit: Yes QualifierTitle: Trimester: unspecified trimester Qualified Code(s): O09.30 - Supervision of with insufficient care, unspecified trimester - Patient Summary/Data Operative Procedure(s) Performed: 26yo F 41wk . Physician: Dr. Masterson. Shift Supervisor Melting:Jt Kramer [facility]. Findings:[place] female 7/9 weight 3150 with perineum intact. Complications:None known - Patient Instructions Diet: Regular Diet as Tolerated Activity: No Strenuous Activities Driving: May Drive Today Showering/Bathing: May Shower Notify Provider of: Fever, Increased Pain, Swelling and Redness, Drainage, Nausea and/or Vomiting Other/Special Instructions: nothing per vagina for 6 weeks, continue vitamins while , may use over the counter ibuprofen or Tylenol for pain. - Discharge Plan Referrals: Laila Montero CNM [Mid-] - (6 weeks) - Discharge Summary/Plan Comment Discharge Summary/Plan Comment: Patient would like to be discharged. Baby was being evaluated for heart issues and was cleared for discharge as well. Discharge instruction reviewed. Continue to take PNV if . Call us/ED if fever over 101 or bloody discharge that soaks a large pad in less than an hour. Educated on normal emotional changes but told her to call us if they get worse after 2 weeks or have thoughts of hurting herself or others. Can use OTC ibuprofen/Tylenol as needed for pain. Nothing in the vaginal in 6 weeks and educated that they can become even when and not having a period. F/U with [facility] in 6 weeks. - General Info Date of Service: 03/11/17 Admission Dx/Problem (Free Text: Patient Status Order with Admit Dx/Problem 03/10/17 02:31 Patient Status [ADT] Routine Admission Diagnosis/Problem Admission Diagnosis/Problem - planned Functional Status: Reports: Pain Controlled, Tolerating Diet, Ambulating, Urinating - Review of Systems General: Denies: Fever, Weakness, Fatigue HEENT: Denies: Headaches, Visual Changes Pulmonary: Denies: Shortness of Breath, Pleuritic Chest Pain, Cough Cardiovascular: Denies: Chest Pain, Palpitations Gastrointestinal: Denies: Constipation, Diarrhea, Nausea, Vomiting Genitourinary: Denies: Dysuria, Frequency, Burning Musculoskeletal: Denies: Neck Pain Neurological: Denies: Confusion, Dizziness, Headache Psychiatric: Denies: Confusion, Depression, Mood Lability - Patient Data Vitals - Most Recent: Last Vital Signs Temp 98.6 F 03/11/17 05:35 Pulse 70 03/11/17 05:35 Resp 18 03/11/17 05:35 BP 120/62 03/11/17 05:35 Pulse Ox 98 03/11/17 05:35 Weight - Most Recent: 74.843 kg Lab Results - Last 24 hrs: Laboratory Results - last 24 hr 03/11/17 Range/Units 05:40 Hgb 10.5 L (12.0-16.0) g/dL Hct 32.3 L (36.0-46.0) % Med Orders - Current: Current Medications Acetaminophen (Tylenol Extra Strength) 1,000 mg PO Q4H PRN PRN Reason: Pain Benzocaine/Menthol (Dermoplast Pain Relief 20%-0.5% [place]) 78 gm TOP ASDIRECTED PRN PRN Reason: Perineal Comfort Measure Last Admin: 03/10/17 02:47 Dose: 1 canister Bisacodyl (Dulcolax) 10 mg RECTAL .ONCE PRN PRN Reason: Constipation Docusate Sodium (Colace) 100 mg PO BID PRN PRN Reason: Constipation Last Admin: 03/10/17 02:48 Dose: 100 mg Emollient Ointment (Lansinoh Hpa) 0 gm TOP ASDIRECTED PRN PRN Reason: Sore Nipples Last Admin: 03/10/17 02:47 Dose: 1 applic Ibuprofen (Motrin) 800 mg PO Q6H PRN PRN Reason: Pain Last Admin: 03/10/17 08:31 Dose: 800 mg Methylergonovine Maleate (Methergine) 0.2 mg IM .ONCE PRN PRN Reason: Excessive Vaginal Bleeding Oxycodone HCl (Oxycodone) 5 mg PO Q2H PRN PRN Reason: Pain Witch Pily (Tucks) 1 pad TOP ASDIRECTED PRN PRN Reason: comfort care Discontinued Medications Ampicillin Sodium (Ampicillin) Confirm Administered Dose 2 gm IV .STK-MED ONE Stop: 03/10/17 01:11 Butorphanol Tartrate (Stadol) 1 mg IVPUSH Q1H PRN PRN Reason: Pain Carboprost Tromethamine (Hemabate Ds) 250 mcg IM ASDIRECTED PRN PRN Reason: Post Hemorrhage Diphtheria/Tetanus/Acell Pertussis (Adacel) 0.5 ml IM .ONCE ONE Stop: 03/10/17 01:33 Diphtheria/Tetanus/Acell Pertussis (Adacel) 0.5 ml IM .ONCE ONE Stop: 03/11/17 06:44 Ampicillin Sodium 2 gm/ Sodium (Chloride) 100 mls @ 200 mls/hr IV ONETIME STA Stop: 03/10/17 01:29 Last Admin: 03/10/17 01:04 Dose: 200 mls/hr Lactated Ringer's (Ringers, Lactated) 1,000 mls @ 150 mls/hr IV ASDIRECTED [facility] Last Admin: 03/10/17 01:04 Dose: 999 mls/hr Oxytocin/Sodium Chloride (Oxytocin 30 Unit/500 Ml-Ns) 30 unit in 500 mls @ 999 mls/hr IV TITRATE [place] Last Admin: 03/10/17 02:04 Dose: 999 mls/hr Ampicillin Sodium 1 gm/ Sodium (Chloride) 50 mls @ 100 mls/hr IV Q4H [place] Sodium Chloride (Normal Saline) Confirm Administered Dose 100 mls @ as directed .ROUTE .[facility] ONE Stop: 03/10/17 01:11 Lidocaine HCl (Xylocaine 1%) 50 ml INJECT .ONCE PRN PRN Reason: Laceration repair Methylergonovine Maleate (Methergine) 0.2 mg IM ASDIRECTED PRN PRN Reason: Post Hemorrhage Misoprostol (Cytotec) 200 mcg PO .ONCE PRN PRN Reason: Post Hemorrhage Nalbuphine HCl (Nubain) 10 mg IVPUSH Q1H PRN PRN Reason: Pain (severe 7-10) Sodium Chloride (Saline Flush) 10 ml FLUSH ASDIRECTED PRN PRN Reason: Keep Vein Open Sodium Chloride (Saline Flush) 2.5 ml FLUSH ASDIRECTED PRN PRN Reason: Keep Vein Open Sterile Water (Sterile Water For Irrigation) 1,000 ml IRR ASDIRECTED PRN PRN Reason: delivery - Exam General: Reports: Alert, Oriented HEENT: Reports: Pupils Equal, Mucous Membr. Moist/[place] Neck: Reports: Trachea Midline Lungs: Reports: Clear to Auscultation, Normal Respiratory Effort Cardiovascular: Reports: Regular Rate, Regular Rhythm GI/Abdominal Exam: Normal Bowel Sounds, Soft Back Exam: Reports: Full Range of Motion Extremities: Normal Inspection, Normal Range of Motion Skin: Reports: Warm, Dry, Intact Neurological: Reports: No New Focal Deficit Psy/Mental Status: Reports: Alert, Normal Affect, Normal Mood Discharge Operative/Procedures - Procedures Performed Operations: Spontaneous Vaginal Delivery *Q Meaningful Use (DIS) - VTE *Q VTE Criteria *Q: - Stroke *Q Stroke Criteria *Q: - AMI *Q AMI Criteria *Q: <Gillian Rodriguez - Last Filed: 03/11/17 09:16> Discharge Summary - Discharge Summary/Plan Comment DC Time >30 min.: No - Patient Data Vitals - Most Recent: Last Vital Signs Temp 37.0 C 03/11/17 05:35 Pulse 70 03/11/17 05:35 Resp 18 03/11/17 05:35 BP 120/62 03/11/17 05:35 Pulse Ox 98 03/11/17 05:35 Lab Results - Last 24 hrs: Laboratory Results - last 24 hr 10/16/17 Range/Units 05:40 Hgb 10.5 L (12.0-16.0) g/dL Hct 32.3 L (36.0-46.0) % Med Orders - Current: Current Medications Acetaminophen (Tylenol Extra Strength) 1,000 mg PO Q4H PRN PRN Reason: Pain Benzocaine/Menthol (Dermoplast Pain Relief 20%-0.5% [place]) 78 gm TOP ASDIRECTED PRN PRN Reason: Perineal Comfort Measure Last Admin: 03/10/17 02:47 Dose: 1 canister Bisacodyl (Dulcolax) 10 mg RECTAL .ONCE PRN PRN Reason: Constipation Docusate Sodium (Colace) 100 mg PO BID PRN PRN Reason: Constipation Last Admin: 03/10/17 02:48 Dose: 100 mg Emollient Ointment (Lansinoh Hpa) 0 gm TOP ASDIRECTED PRN PRN Reason: Sore Nipples Last Admin: 03/10/17 02:47 Dose: 1 applic Ibuprofen (Motrin) 800 mg PO Q6H PRN PRN Reason: Pain Last Admin: 03/10/17 08:31 Dose: 800 mg Methylergonovine Maleate (Methergine) 0.2 mg IM .ONCE PRN PRN Reason: Excessive Vaginal Bleeding Oxycodone HCl (Oxycodone) 5 mg PO Q2H PRN PRN Reason: Pain Witch Pily (Tucks) 1 pad TOP ASDIRECTED PRN PRN Reason: comfort care Discontinued Medications Ampicillin Sodium (Ampicillin) Confirm Administered Dose 2 gm IV .STK-MED ONE Stop: 03/10/17 01:11 Butorphanol Tartrate (Stadol) 1 mg IVPUSH Q1H PRN PRN Reason: Pain Carboprost Tromethamine (Hemabate Ds) 250 mcg IM ASDIRECTED PRN PRN Reason: Post Hemorrhage Diphtheria/Tetanus/Acell Pertussis (Adacel) 0.5 ml IM .ONCE ONE Stop: 03/10/17 01:33 Diphtheria/Tetanus/Acell Pertussis (Adacel) 0.5 ml IM .ONCE ONE Stop: 03/11/17 06:44 Ampicillin Sodium 2 gm/ Sodium (Chloride) 100 mls @ 200 mls/hr IV ONETIME STA Stop: 03/10/17 01:29 Last Admin: 03/10/17 01:04 Dose: 200 mls/hr Lactated Ringer's (Ringers, Lactated) 1,000 mls @ 150 mls/hr IV ASDIRECTED [facility] Last Admin: 03/10/17 01:04 Dose: 999 mls/hr Oxytocin/Sodium Chloride (Oxytocin 30 Unit/500 Ml-Ns) 30 unit in 500 mls @ 999 mls/hr IV TITRATE [facility] Last Admin: 03/10/17 02:04 Dose: 999 mls/hr Ampicillin Sodium 1 gm/ Sodium (Chloride) 50 mls @ 100 mls/hr IV Q4H [facility] Sodium Chloride (Normal Saline) Confirm Administered Dose 100 mls @ as directed .ROUTE [facility] ONE Stop: 03/10/17 01:11 Lidocaine HCl (Xylocaine 1%) 50 ml INJECT .ONCE PRN PRN Reason: Laceration repair Methylergonovine Maleate (Methergine) 0.2 mg IM ASDIRECTED PRN PRN Reason: Post Hemorrhage Misoprostol (Cytotec) 200 mcg PO .ONCE PRN PRN Reason: Post Hemorrhage Nalbuphine HCl (Nubain) 10 mg IVPUSH Q1H PRN PRN Reason: Pain (severe 7-10) Sodium Chloride (Saline Flush) 10 ml FLUSH ASDIRECTED PRN PRN Reason: Keep Vein Open Sodium Chloride (Saline Flush) 2.5 ml FLUSH ASDIRECTED PRN PRN Reason: Keep Vein Open Sterile Water (Sterile Water For Irrigation) 1,000 ml IRR ASDIRECTED PRN PRN Reason: delivery *Q Meaningful Use (DIS) - VTE *Q VTE Criteria *Q: - Stroke *Q Stroke Criteria *Q: - AMI *Q AMI Criteria *Q:
--- NOTE | 2017-03-11 09:19 | PCM.SN ---
- Free Text/Narrative Note: Patient seen and evaluated, agree with MSIV notes and discharge.
--- NOTE | 2017-03-11 12:19 | OR ---
SURGEON: Katherine Masterson M.D. DATE OF PROCEDURE: 03/10/2017 DELIVERY NOTE PREOPERATIVE DIAGNOSES: 1. 40 and 6/7 week intrauterine . 2. Active spontaneous labor. 3. Meconium. POSTOPERATIVE DIAGNOSES: 1. 40 and 6/7 week intrauterine . 2. Active spontaneous labor. 3. Meconium. PROCEDURES PERFORMED: Term spontaneous vaginal delivery. SURGEON: Katherine Masterson MD. TAPE DUPLICATOR: Jt Kramer MS-4. ANESTHESIA: Pudendal. ESTIMATED BLOOD LOSS: Less than 300 mL. FINDINGS: Live born female, score 7 and 9, weighing 3150 g. Placenta was spontaneous, Schultze intact with three vessels. Perineum was intact. BRIEF HISTORY: This is a 26-year-old female. She is G2, P1-0-0-1. She presents at 40 and 6/7 weeks' gestation in active spontaneous labor. She has had two visits during the , the last of which was in October. She initially presented for labor evaluation. She was 4 cm to 5 cm with minimal cervical change. She then had spontaneous rupture of membranes, and with moderate meconium noted. At this point, she was 7 cm to 8 cm dilated. Anesthesia was notified and present. However, the patient could not refrain from pushing, and therefore, she was offered a pudendal block, which was performed placing 10 mL of 1% lidocaine 1 cm medial and inferior to the ischial spine bilaterally. With this, she had excellent anesthesia of the perineum. DESCRIPTION OF PROCEDURE: The patient pushed over a ten-minute time period to a 5+ station, at which time the head was delivered spontaneously and atraumatically over the perineum with support, with subsequent delivery of the infant's shoulders and body without any difficulty. The was bulb suctioned by nose and mouth. Dr. Foote was present at the time of delivery. The cord was clamped and cut after it had ceased to pulsate, and Dr. Foote was present at the delivery and proceeded with assessment of the baby. The infant was a live-born female, score of 7 and 9, weighing 3150 g. Cord blood was collected for cord ABGs as well as routine cord blood sampling. Pitocin was initiated after delivery of the infant to assist with delivery of the placenta, which was delivered spontaneously, Schultze intact with three vessels. Upon inspection of the pelvis and perineum, there were no periurethral, vaginal sidewall, cervical, rectal, or perineal lacerations. Estimated blood loss was less than 200 mL. POSTOPERATIVE CONDITION: Infant and mother remained in LDRP in good condition. COUNT RESULTS: Final sponge, needle, and instrument counts were correct. STEFFANY VANCE /[id number]
== END 2017-03-11 12:05 | disposition home or self-care (01) | DRG 560 ==
LOC: MW.OBCHECK 22:55 → MW.OB 22:56 → MW.OBCHECK 03-10 01:07 → OBSVTOIN 03-10 02:03 → MW.OB 03-10 04:46
PROVIDERS: ADMIT Obstetrics & Gynecology; ATTEND Obstetrics & Gynecology
PROC: 10E0XZZ Delivery of Products of Conception, External Approach (ICD-10-PCS; principal; 2017-03-10)
DX: O48.0 Post-term pregnancy (principal); Z3A.41 41 weeks gestation of pregnancy; Z37.0 Single live birth; O77.0 Labor and delivery complicated by meconium in amniotic fluid
CPT/HCPCS: 36415; 59025; 59409; 80305; 81003; 85014; 85018; 85027; 86850; 86900; 86901; 87081; 90471; 90715; A9270-GY; J0290; J2590; J7030; J7120